=== PATIENT | male | born 1985 | race Caucasian/White ===

== ENCOUNTER 2018-01-14 15:10 | Emergency (ER) | payer MEDICAID ==
[2018-01-14 15:23] VITALS: BP 137/104; PULSE 97; RESP 18; TEMP 97.9; O2SAT 97
--- NOTE | 2018-01-14 16:17 | EDPHY ---
H & P Time Seen by Provider: 01/14/18 15:20 HPI/ROS: 32 yo M presents complaining of swelling on his left lower leg just below his knee on the left. States he hit it while snowboarding approximately 3 weeks ago and that it has continued to have swelling be slightly painful however also have decreased sensation just in that area. He denies difficulty walking or bending his knee. He denies calf pain. Review of systems As per HPI General no fever no chills no weakness HEENT no eye pain no eye discharge. No eye redness, no sore throat Respiratory no cough, no shortness of breath Cardiac no chest pain, no peripheral edema GI no abdominal pain, no diarrhea, no constipation, no nausea, no vomiting no flank pain, no hematuria, no dysuria Musculoskeletal no myalgias, no joint pain Heme no easy bruising, no easy bleeding Endo no polyuria, no polydipsia Skin no rashes, no pruritus Neuro no syncope, no dizziness, no headaches Psych is no suicidal ideation, no homicidal ideation Past Medical/Surgical History: Attention deficit disorder Bipolar Social History: Denies alcohol or drug use Smoking Status: Current some day smoker Physical Exam: Alert and oriented in no acute distress nontoxic appearance, afebrile Atraumatic normocephalic Neck no JVD Lungs clear to auscultation, no respiratory distress Heart regular rate and rhythm Extremities no cyanosis clubbing edema Except Left lower extremity 3 x 3 cm area of swelling at medial aspect just distal to knee, no erythema, no increased warmth Positive fluctuance Left knee full range of motion No calf swelling no calf tenderness Constitutional: Initial Vital Signs Temperature (C) 36.6 C 01/14/18 15:18 Heart Rate 97 01/14/18 15:18 Respiratory Rate 18 01/14/18 15:18 Blood Pressure 137/104 H 01/14/18 15:18 O2 Sat (%) 97 01/14/18 15:18 O2 Delivery Mode Room Air Allergies/Adverse Reactions: No Known Allergies Allergy (Verified 01/14/18 15:16) Home Medications: Medication Instructions Recorded Adderall 10 mg 06/10/11 Imitrex 06/10/11 RITALIN 11/23/13 Xanax 11/23/13 traZODONE 11/23/13 Pristiq 01/14/18 Medical Decision Making - Diagnostics Imaging Results: Imaging Impressions Knee X-Ray 01/14/18 15:23 Impression: 1. No acute osseous abnormality is seen left knee. ED Course/Re-evaluation: Patient presents for evaluation of swelling just below his left knee from injury 3 weeks ago. X-ray negative for osseous abnormality Physical exam positive fluid collection consistent with hematoma Impression Lower extremity hematoma Plan Rest, ice, elevation, Tod wrap Follow up Ortho Differential Diagnosis: Differential diagnosis considered but not limited to Fibular fracture, tibia fracture, patellar subluxation, hematoma, abscess, effusion Departure - Departure Disposition: Home, Routine, Self-Care Clinical Impression: Hematoma of left lower extremity Condition: Good Instructions: Hematoma (ED) Referrals: NONE *PRIMARY CARE P,. [Primary Care Provider] - As per Instructions Emmanuel Mak MD [Medical Doctor] - As per Instructions
== END 2018-01-14 16:26 | disposition home or self-care (01) ==
LOC: CED 15:10
DX: S80.12XA Contusion of left lower leg, initial encounter (principal); F17.200 Nicotine dependence, unspecified, uncomplicated; V00.318A Other snowboard accident, initial encounter
CPT/HCPCS: 73564-PO